=== PATIENT | female | born 1995 | race American Indian/Alaskan Native ===

== ENCOUNTER 2020-11-11 12:09 | Emergency (ER) | payer SELFPAY ==
[2020-11-11 13:52] LABS: Bilirubin,Urine NEG (Negative); Blood,Urine MOD (Negative); Color,Urine Yellow (Yellow); Mucus,Urine 2+ /HPF
[2020-11-11 13:53] LABS: HCG Qualitative,Urine Negative (Negative)
--- NOTE | 2020-11-11 14:01 | Emergency Department Report ---
ED General Adult HPI - General Chief complaint: Urogenital-Female Stated complaint: ABD PAINS Time Seen by Provider: 11/11/20 13:13 Source: patient Mode of arrival: Ambulatory Limitations: No Limitations - History of Present Illness Initial comments: 25-year-old -[place] female patient without past medical history presents with complaints of burning urination x2 days along with urinary frequency. She denies any abnormal vaginal discharge/dyspareunia, vaginal bleeding, abdominal pain, flank pain, or fever/chills/sweats. Patient rates her pain as a 6/10 in severity and states it feels similar to when she has had a UTI in the past. -: Sudden Improves with: none - Related Data Previous Rx's Medication Instructions Recorded Last Taken Type Naproxen [Naprosyn TAB] 500 mg PO BID #30 tablet 01/17/20 Unknown Rx Sulfamethoxazole/Trimethoprim 1 each PO BID 5 Days #10 tablet 11/11/20 Unknown Rx [Bactrim DS TAB] Allergies Allergy/AdvReac Type Severity Reaction Status Date / Time No Known Allergies Allergy Verified 01/17/20 10:07 ED Review of Systems ROS: Stated complaint: ABD PAINS Other details as noted in HPI Constitutional: denies: chills, diaphoresis, fever, malaise, weakness Respiratory: denies: cough, shortness of breath Cardiovascular: denies: chest pain Gastrointestinal: denies: abdominal pain, nausea, vomiting Genitourinary: urgency, dysuria, frequency. denies: hematuria, discharge, abnormal menses, dyspareunia Musculoskeletal: denies: back pain Hematological/Lymphatic: denies: swollen glands ED Past Medical Hx - Past Medical History Previous Medical History?: Yes Hx Headaches / Migraines: Yes - Social History Smoking Status: Never Smoker Substance Use Type: None - Medications Home Medications: Home Medications Medication Instructions Recorded Confirmed Last Taken Type Naproxen [Naprosyn TAB] 500 mg PO BID #30 tablet 01/17/20 Unknown Rx Sulfamethoxazole/Trimethoprim 1 each PO BID 5 Days #10 tablet 11/11/20 Unknown Rx [Bactrim DS TAB] ED Physical Exam - General Limitations: No Limitations General appearance: alert, in no apparent distress, obese - Head Head exam: Present: atraumatic, normocephalic - Eye Eye exam: Present: normal appearance - Respiratory Respiratory exam: Absent: respiratory distress - Cardiovascular Cardiovascular Exam: Present: regular rate, normal rhythm. Absent: systolic murmur, diastolic murmur, rubs, gallop - GI/Abdominal GI/Abdominal exam: Present: soft, normal bowel sounds. Absent: distended, tenderness, guarding, rebound, rigid - Back Exam Back exam: Absent: CVA tenderness (R), CVA tenderness (L) - Neurological Exam Neurological exam: Present: alert, oriented X3 - Psychiatric Psychiatric exam: Present: normal affect, normal mood - Skin Skin exam: Present: warm, dry, intact, normal color. Absent: rash ED Course Vital Signs 11/11/20 12:34 Temperature 98.5 F Pulse Rate 77 Respiratory 18 Rate Blood Pressure 147/96 O2 Sat by Pulse 100 Oximetry ED Medical Decision Making - Medical Decision Making Right hand radiograph, 3 views. HISTORY: Pain after injury. COMPARISON: None FINDINGS: Mild diffuse osteopenia. 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 There is no acute fracture or malalignment. No fo alfredo soft tissue abnormality. IMPRESSION: No acute osseous findings of the right hand. Critical care attestation.: If time is entered above; I have spent that time in minutes in the direct care of this critically ill patient, excluding procedure time. ED Disposition Clinical Impression: UTI (urinary tract infection) Disposition: -01 TO HOME OR SELFCARE Is pt being admited?: No Condition: Stable Instructions: Urinary Tract Infection, Adult, [id number] Prescriptions: Sulfamethoxazole/Trimethoprim [Bactrim DS TAB] 1 each PO BID 5 Days #10 tablet Referrals: PRIMARY CARE,MD [Primary Care Provider] - 3-5 Days Forms: Work/School Release Form(ED)
== END 2020-11-11 14:43 | disposition home or self-care (01) ==
LOC: ED 12:09
DX: N39.0 Urinary tract infection, site not specified (principal); G43.909 Migraine, unspecified, not intractable, without status migrainosus; Z79.899 Other long term (current) drug therapy
CPT/HCPCS: 81001; 81025; 87086; 99283

== ENCOUNTER 2021-05-01 11:38 | Emergency (ER) | payer OTHER ==
--- NOTE | 2021-05-01 12:06 | Emergency Department Report ---
ED Extremity Problem HPI - General Chief complaint: Extremity Injury, Lower Stated complaint: BOTH ANKLE PAIN/SWELLING Time Seen by Provider: 05/01/21 11:52 Source: patient Mode of arrival: Ambulatory Limitations: No Limitations - History of Present Illness Initial comments: Patient is a 25-year-old female presents emergency room with complaints of bila teral ankle swelling for 3 months. Patient states that she started a new job in January 2021 and she has to stand on her feet for 9 hours a day. She denies any fall or injury. She states that whenever she gets home and gets off her feet the swelling goes away. She denies any swelling of the leg or calf pain. She denies any chest pain, shortness of breath, numbness, weakness, rash, redness. No past medical history. No allergies to medications. - Related Data Previous Rx's Medication Instructions Recorded Last Taken Type Sulfamethoxazole/Trimethoprim 1 each PO BID #10 tablet 12/20/20 Unknown Rx [Bactrim DS TAB] predniSONE [Deltasone] 20 mg PO DAILY #5 tablet 12/20/20 Unknown Rx Allergies Allergy/AdvReac Type Severity Reaction Status Date / Time No Known Allergies Allergy Verified 01/17/20 10:07 ED Review of Systems ROS: Stated complaint: BOTH ANKLE PAIN/SWELLING Other details as noted in HPI Comment: All other systems reviewed and negative ED Past Medical Hx - Past Medical History Hx Headaches / Migraines: Yes - Surgical History Past Surgical History?: No - Social History Smoking Status: Never Smoker Substance Use Type: None - Medications Home Medications: Home Medications Medication Instructions Recorded Confirmed Last Taken Type Sulfamethoxazole/Trimethoprim 1 each PO BID #10 tablet 12/20/20 Unknown Rx [Bactrim DS TAB] predniSONE [Deltasone] 20 mg PO DAILY #5 tablet 12/20/20 Unknown Rx ED Physical Exam - General Limitations: No Limitations General appearance: alert, in no apparent distress - Head Head exam: Present: atraumatic, normocephalic - Eye Eye exam: Present: normal appearance - ENT ENT exam: Present: mucous membranes moist - Extremities Exam Extremities exam: Present: other (mild non pitting edema to the bilateral an kles, no foot or calf swelling, no calf ttp, negative homans sign, neurovascularly intact, no rash, no erythema, no skin changes, strong distal pulses) - Neurological Exam Neurological exam: Present: alert, oriented X3 - Psychiatric Psychiatric exam: Present: normal affect, normal mood - Skin Skin exam: Present: warm, dry, intact ED Course Vital Signs 05/01/21 05/01/21 11:51 14:31 Temperature 98.4 F 98.0 F Pulse Rate 86 72 Respiratory 16 18 Rate Blood Pressure 144/101 130/102 O2 Sat by Pulse 98 99 Oximetry ED Medical Decision Making - Lab Data Result diagrams: 05/01/21 12:40 05/01/21 12:40 Lab Results 05/01/21 05/01/21 Range/Units 12:40 12:40 WBC 4.8 (4.5-11.0) K/mm3 RBC 4.84 (3.65-5.03) M/mm3 Hgb 14.1 (10.1-14.3) gm/dl Hct 42.2 (30.3-42.9) % MCV 87 (79-97) fl MCH 29 (28-32) pg MCHC 33 (30-34) % RDW 14.7 (13.2-15.2) % Plt Count 224 (140-440) K/mm3 Lymph % (Auto) 28.5 (13.4-35.0) % Craig % (Auto) 7.3 (0.0-7.3) % Eos % (Auto) 2.5 (0.0-4.3) % Baso % (Auto) 2.5 H (0.0-1.8) % Lymph # (Auto) 1.4 (1.2-5.4) K/mm3 Craig # (Auto) 0.3 (0.0-0.8) K/mm3 Eos # (Auto) 0.1 (0.0-0.4) K/mm3 Baso # (Auto) 0.1 (0.0-0.1) K/mm3 Seg Neutrophils % 59.2 (40.0-70.0) % Seg Neutrophils # 2.8 (1.8-7.7) K/mm3 Sodium 137 (137-145) mmol/L Potassium 4.2 (3.6-5.0) mmol/L Chloride 105.9 (98-107) mmol/L Carbon Dioxide 23 (22-30) mmol/L Anion Gap 12 mmol/L BUN 12 (7-17) mg/dL Creatinine 0.8 (0.6-1.2) mg/dL Estimated GFR > 60 ml/min BUN/Creatinine Ratio 15 % Glucose 87 (65-100) mg/dL Calcium 9.0 (8.4-10.2) mg/dL Total Bilirubin 0.80 (0.1-1.2) mg/dL AST 19 (5-40) units/L ALT 21 (7-56) units/L Alkaline Phosphatase 57 (35-129) units/L NT-Pro-B Natriuret Pep 22.45 (0-450) pg/mL Total Protein 7.5 (6.3-8.2) g/dL Albumin 3.8 L (3.9-5) g/dL Albumin/Globulin Ratio 1.0 % Vital Signs 05/01/21 05/01/21 11:51 14:31 Temperature 98.4 F 98.0 F Pulse Rate 86 72 Respiratory 16 18 Rate Blood Pressure 144/101 130/102 O2 Sat by Pulse 98 99 Oximetry - Medical Decision Making Patient is a 25-year-old female presents emergency room with complaints of bilateral ankle swelling for 3 months. 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 She denies any fall or injury. She states that whenever she gets home and gets off her feet the swelling goes away. She denies any swelling of the leg or calf pain. She denies any chest pain, shortness of breath, numbness, weakness, rash, redness. No past medical history. No allergies to medications. Vitals are stable. On exam:mild non pitting edema to the bilateral ankles, no foot or calf swelling, no calf ttp, negative homans sign, neurovascularly intact, no rash, no erythema, no skin changes, strong distal pulses. Labs are normal. No clinical signs of DVT or arterial occlusion at this time. No clinical signs of vasculitis. Discussed supportive care and symptomatic treatment with patient. Discussed the importance of outpatient follow-up and strict return precautions. advised pt eat a low sodium diet. wear compression stockings while you are on your feet. follow up with a primary care doctor. return to the emergency room for any new or worsening symptoms. Critical care attestation.: If time is entered above; I have spent that time in minutes in the direct care of this critically ill patient, excluding procedure time. ED Disposition Clinical Impression: Ankle swelling Qualifiers: Laterality: unspecified laterality Qualified Code(s): M25.473 - Effusion, unspecified ankle Disposition: 01 HOME / SELF CARE / HOMELESS Is pt being admited?: No Does the pt Need Aspirin: No Condition: Stable Instructions: Low-Sodium Eating Plan, Peripheral Edema Additional Instructions: eat a low sodium diet. wear compression stockings while you are on your feet. follow up with a primary care doctor. return to the emergency room for any new or worsening symptoms. Referrals: JULIAN KOHLI MD [Staff Physician] - 3-5 Days [facility] [Provider Group] - 3-5 Days SPENSER HERRERA MD [Staff Physician] - 3-5 Days Time of Disposition: 13:25 Print Language: UPPER SORBIAN
[2021-05-01 12:59] LABS: Basophils # (Auto) 0.1 K/mm3 (0.0-0.1); Basophils % (Auto) 2.5 % (0.0-1.8); Eosinophils # (Auto) 0.1 K/mm3 (0.0-0.4); Eosinophils % (Auto) 2.5 % (0.0-4.3); Hematocrit 42.2 % (30.3-42.9); Hemoglobin 14.1 gm/dl (10.1-14.3); Lymphocytes # (Auto) 1.4 K/mm3 (1.2-5.4); Lymphocytes % (Auto) 28.5 % (13.4-35.0); Mean Corpuscular HGB Conc 33 % (30-34); Mean Corpuscular Volume 87 fl (79-97); Monocytes # (Auto) 0.3 K/mm3 (0.0-0.8); Monocytes % (Auto) 7.3 % (0.0-7.3); Platelet Count 224 K/mm3 (140-440); Red Blood Count 4.84 M/mm3 (3.65-5.03); Red Cell Distribution Width 14.7 % (13.2-15.2)
[2021-05-01 13:15] LABS: Alanine Aminotransferase 21 units/L (7-56); Albumin 3.8 g/dL (3.9-5); BUN/Creatinine Ratio 15; Blood Urea Nitrogen 12 mg/dL (7-17); Hemolysis Index 21
[2021-05-01 14:33] VITALS: BP 130/102
== END 2021-05-01 14:35 | disposition home or self-care (01) ==
LOC: ED 11:38
DX: M25.471 Effusion, right ankle (principal); M25.472 Effusion, left ankle; G43.909 Migraine, unspecified, not intractable, without status migrainosus
CPT/HCPCS: 36415; 80053; 83880; 85025; 99283